=== PATIENT | male | born 2000 | race Caucasian/White ===

== ENCOUNTER 2023-01-10 15:36 | Emergency (ER) | payer OTHER ==
[~2023-01-10] VITALS: Ht 175.3 cm; Wt 65.6 kg
[2023-01-10 15:55] VITALS: BP 113/67; PULSE 75; TEMP 98.9; O2SAT 97
[2023-01-10] MEDS ORDERED: rabies immune globulin/PF 150 unit/ml inj IMVAC ONE (16:40)
[2023-01-10] MEDS ORDERED: TETanus/Pertussis (Acell)/Diphther VAC/PF (Tdap-Adult) 0.5ml syringe IMVAC ONE (16:40)
[2023-01-10] MEDS ORDERED: rabies vaccine (PCEC)/PF 2.5 unit kit IMVAC ONE (16:40)
--- NOTE | 2023-01-10 18:09 | NUR ---
assisting [employer] with pt care, pt is refusing rabies series at this time, Nakia ROSADO at bedside to explain in length benefits/risks of receiving series. The medical emergency insurance system is down, unable to find out if pt qualifies. Pt is aware, he agreed to follow up tomorrow regarding insurance and will return to ER as needed.
[2023-01-10 18:17] VITALS: RESP 18
== END 2023-01-10 18:18 | disposition home or self-care (01) ==
LOC: ER 15:37
DX: S91.134A Puncture wound without foreign body of right lesser toe(s) without damage to nail, initial encounter (principal); F17.200 Nicotine dependence, unspecified, uncomplicated; X58.XXXA Exposure to other specified factors, initial encounter; Y93.89 Activity, other specified; Y92.89 Other specified places as the place of occurrence of the external cause; Y99.8 Other external cause status
CPT/HCPCS: 90376; 90471; 90675; 90715; 99283